=== PATIENT | female | born 1965 ===

== ENCOUNTER 2018-05-17 20:05 | Outpatient (CLI) | payer OTHER | END 2018-05-18 14:22 | disposition home or self-care (01) | LOC: RAD 20:05 | DX: M54.2 Cervicalgia (principal); M54.6 Pain in thoracic spine; M54.5 Low back pain ==

== ENCOUNTER 2018-06-13 13:42 | Outpatient (CLI) | payer OTHER | END 2018-06-13 13:46 | disposition home or self-care (01) | LOC: SONOGRAMA 13:42 | DX: E04.2 Nontoxic multinodular goiter (principal) ==

== ENCOUNTER 2018-07-24 20:42 | Emergency (ER) | payer OTHER ==
[~2018-07-24] VITALS: Ht 160 cm; Wt 71.2 kg
[2018-07-24] MEDS ORDERED: COZAAR25 MG PO (20:56)
== END 2018-07-24 21:59 | disposition home or self-care (01) ==
LOC: ER 20:42
DX: H66.92 Otitis media, unspecified, left ear (principal)

== ENCOUNTER 2018-10-02 12:54 | Outpatient (CLI) | payer OTHER ==
[~2018-10-02 12:54] MED LIST: COZAAR25 MG PO
== END 2018-10-02 13:07 | disposition home or self-care (01) ==
LOC: MAMO-SONO 12:54
DX: Z12.31 Encounter for screening mammogram for malignant neoplasm of breast (principal); N64.4 Mastodynia; N60.11 Diffuse cystic mastopathy of right breast; N63.10 Unspecified lump in the right breast, unspecified quadrant